=== PATIENT | female | born 1960 | race Caucasian/White ===

== ENCOUNTER 2024-04-08 16:46 | Inpatient (IN) | payer MEDICARE, MEDICAID ==
[2024-04-08 19:49] VITALS: BMI 47.0
[2024-04-08] MEDS ORDERED: traMADol HCl 50 MG TAB PO PRN ×2 (21:52)
[2024-04-08] MEDS ORDERED: Acetaminophen 650 MG Suppository PR PRN (21:52)
[2024-04-08] MEDS ORDERED: Dextrose 50% Abboject 50 ML SYRINGE SLOW IVP PRN (21:52)
[2024-04-08] MEDS ORDERED: Dextrose 5% in Water 1,000 ML IV PRN (21:52)
[2024-04-08] MEDS ORDERED: Glucagon 1 MG/ML KIT IM PRN (21:52)
[2024-04-08] MEDS ORDERED: Vancomycin Dialysis Sliding Scale (Wt > 99) FS SCH (22:30)
[2024-04-08] MEDS: Morphine 4 MG/ML VIAL SLOW IVP PRN (22:48)
[2024-04-08] MEDS: Ondansetron ODT 4 MG TAB PO PRN (22:48)
[2024-04-08] MEDS: Piperacillin/Tazobactam 3.375 GM in Sodium Chloride 0.9% 100 ML IVPB SCH (22:50)
[2024-04-08] MEDS: Insulin Lispro 100 UNIT/ML 10 ML VIAL SC PRN (23:01)
[2024-04-09 05:28] LABS: Anion Gap 19 mmol/L (10-20); BUN (Urea Nitrogen) 50 mg/dL (9.8-20.1); Calc. Creatinine Clearance 22 mL/min (70-130); Calcium 9.2 mg/dL (7.8-10.44); Carbon Dioxide 23 mmol/L (23-31); Chloride 97 mmol/L (98-107); Estimated GFR 9; Glucose 198 mg/dL (80-115); Sodium 135 mmol/L (136-145)
[2024-04-09 05:38] LABS: #Basophils 0.03 10x3/uL (0.0-0.2); %Basophils 0.5 % (0.0-1.0); %Eosinophils 4.4 % (0.0-10.0); %Lymphocytes 27.7 % (21.0-51.0); %Monocytes 13.7 % (0.0-10.0); %Neutrophils 53.2 % (42.0-75.0); Hematocrit 30.4 % (36.0-47.0); Hemoglobin 9.4 g/dL (12.0-16.0); Mean Corpuscular HGB CONC 30.9 g/dL (32.0-36.0); Mean Corpuscular Hemoglobin 29.1 pg (27.0-31.0); Mean Corpuscular Volume 94.1 fL (78.0-98.0); Mean Platelet Volume 10.9 fL (7.4-10.4); Platelet Count 144 10x3/uL (130-400); RBC Distribution Width 16.2 % (11.5-14.5); Red Blood Cell (RBC) Count 3.23 mill/uL (4.20-5.40)
[2024-04-09 07:38] LABS: Vancomycin, Trough 23.8 ug/mL
[2024-04-09] MEDS: Insulin Glargine 30 UNITS/0.3 ML VIAL SC SCH (08:53)
[2024-04-09] MEDS ORDERED: Vancomycin 2 GM in Sodium Chloride 0.9% 500 ML IVPB SCH (09:00)
[2024-04-09 10:44] LABS: HBSAB Concentration 30.24 mIU/mL; HBsAg Index 0.26 S/CO (0-0.99); Hep B Core Total Ab NONREACTIVE (NonReactive); Hep B Core Total Index 0.06 S/CO (0-0.79); Hep B Surf AB REACTIVE (NonReactive); Hep B Surf Ag NONREACTIVE S/CO (NonReactive); Hep C IgG Ab NONREACTIVE S/CO (NonReactive); Hep C Index 0.23 S/CO (0-0.79)
[2024-04-09] MEDS: Acetaminophen/Codeine 30-300mg Tablet PO PRN (13:48)
[2024-04-09] MEDS: busPIRone HCl 10 MG TAB PO SCH (13:49)
[2024-04-09] MEDS: Vancomycin HCl 500 MG in Sodium Chloride 0.9% 100 ML IVPB SCH (21:02)
[2024-04-09] MEDS: rOPINIRole HCl 0.5 MG TAB PO SCH (21:03)
[2024-04-09] MEDS: Famotidine 20 MG TAB PO SCH (21:03)
[2024-04-09] MEDS: Apixaban 2.5 MG TAB PO SCH (21:04)
[2024-04-09] MEDS: Escitalopram Oxalate 20 mg Tablet PO SCH (21:04)
[2024-04-09] MEDS: hydrOXYzine 10 MG TAB PO PRN (21:04)
[2024-04-10] MEDS: Levothyroxine Sodium 75 MCG TAB PO SCH (05:52)
[2024-04-10] MEDS: Ondansetron PF 4 MG/2 ML Vial IVP PRN (05:59)
[2024-04-10] MEDS: Torsemide 100 MG TAB PO SCH (09:56)
[2024-04-10] MEDS: Amlodipine 10 MG TAB PO SCH (09:56)
[2024-04-10] MEDS: Pantoprazole DR 40 MG TAB PO SCH (09:56)
[2024-04-10] MEDS: Oxybutynin ER 5 MG TAB PO SCH (09:56)
[2024-04-10] MEDS: ALPRAZolam 1 MG TAB PO PRN (11:37)
[2024-04-10] MEDS: Morphine 2 MG/ML VIAL SLOW IVP PRN (20:46)
[2024-04-11] MEDS: Acetaminophen 325 MG TAB PO PRN (02:12)
[2024-04-11] MEDS: Insulin Glargine 30 UNITS/0.3 ML VIAL SC SCH (08:20)
[2024-04-11 09:07] LABS: #Basophils 0.06 10x3/uL (0.0-0.2); %Eosinophils 3.6 % (0.0-10.0); %Lymphocytes 25.9 % (21.0-51.0); %Monocytes 12.2 % (0.0-10.0); %Neutrophils 56.8 % (42.0-75.0); Hematocrit 32.3 % (36.0-47.0); Hemoglobin 10.2 g/dL (12.0-16.0); Mean Corpuscular HGB CONC 31.6 g/dL (32.0-36.0); Mean Corpuscular Hemoglobin 29.5 pg (27.0-31.0); Mean Corpuscular Volume 93.4 fL (78.0-98.0); Mean Platelet Volume 11.2 fL (7.4-10.4); Platelet Count 184 10x3/uL (130-400); RBC Distribution Width 15.9 % (11.5-14.5); Red Blood Cell (RBC) Count 3.46 mill/uL (4.20-5.40)
[2024-04-11 09:30] LABS: Anion Gap 23 mmol/L (10-20); BUN (Urea Nitrogen) 54 mg/dL (9.8-20.1); Calc. Creatinine Clearance 21 mL/min (70-130); Calcium 9.2 mg/dL (7.8-10.44); Carbon Dioxide 19 mmol/L (23-31); Chloride 96 mmol/L (98-107); Estimated GFR 8; Glucose 311 mg/dL (80-115); Magnesium 2.4 mg/dL (1.6-2.6); Potassium 5.6 mmol/L (3.5-5.1); Sodium 132 mmol/L (136-145)
[2024-04-12 06:55] LABS: #Basophils 0.04 10x3/uL (0.0-0.2); %Basophils 0.6 % (0.0-1.0); %Eosinophils 3.7 % (0.0-10.0); %Monocytes 11.2 % (0.0-10.0); Hematocrit 29.8 % (36.0-47.0); Hemoglobin 9.2 g/dL (12.0-16.0); Mean Corpuscular HGB CONC 30.9 g/dL (32.0-36.0); Mean Corpuscular Hemoglobin 29.4 pg (27.0-31.0); Mean Corpuscular Volume 95.2 fL (78.0-98.0); Mean Platelet Volume 10.1 fL (7.4-10.4); Platelet Count 179 10x3/uL (130-400); RBC Distribution Width 15.7 % (11.5-14.5); Red Blood Cell (RBC) Count 3.13 mill/uL (4.20-5.40)
[2024-04-12 07:07] LABS: Anion Gap 20 mmol/L (10-20); BUN (Urea Nitrogen) 68 mg/dL (9.8-20.1); Calc. Creatinine Clearance 18 mL/min (70-130); Carbon Dioxide 21 mmol/L (23-31); Chloride 98 mmol/L (98-107); Estimated GFR 7; Glucose 254 mg/dL (80-115); Magnesium 2.3 mg/dL (1.6-2.6); Potassium 3.8 mmol/L (3.5-5.1); Sodium 135 mmol/L (136-145)
[2024-04-12 07:50] VITALS: BP 147/77; TEMP 98.5
[2024-04-12] MEDS: Insulin NPH Human Isophane 100 UNITS/ML (10 ML VIAL) SC SCH (08:05)
[2024-04-12 08:57] LABS: Vancomycin, Trough 14.8 ug/mL
[2024-04-12] MEDS ORDERED: Insulin Glargine 30 UNITS/0.3 ML VIAL SC SCH (09:00)
[2024-04-12] MEDS ORDERED: Heparin 10,000 UNITS/ 10 ML VIAL ONE (09:02)
[2024-04-12] MEDS: Loperamide HCl 2 MG CAP PO PRN (12:13)
[2024-04-12] MEDS ORDERED: VANCOMYCIN 1.25 GM/250 ML BAG 1.25 GM in Premix 1 BAG IVPB SCH (17:00)
== END 2024-04-12 13:36 | disposition home or self-care (01) | DRG 638 ==
LOC: T4-B 18:51
PROVIDERS: ADMIT Family Medicine; ATTEND Family Medicine
PROC: 5A1D70Z Performance of Urinary Filtration, Intermittent, Less than 6 Hours Per Day (ICD-10-PCS; principal; 2024-04-12)
DX: E11.628 Type 2 diabetes mellitus with other skin complications (principal); I12.0 Hypertensive chronic kidney disease with stage 5 chronic kidney disease or end stage renal disease; L03.115 Cellulitis of right lower limb; E11.621 Type 2 diabetes mellitus with foot ulcer; E11.610 Type 2 diabetes mellitus with diabetic neuropathic arthropathy; L97.519 Non-pressure chronic ulcer of other part of right foot with unspecified severity; N18.6 End stage renal disease; Z99.2 Dependence on renal dialysis; E11.22 Type 2 diabetes mellitus with diabetic chronic kidney disease; F41.9 Anxiety disorder, unspecified; Z88.8 Allergy status to other drugs, medicaments and biological substances; E03.9 Hypothyroidism, unspecified; Z90.49 Acquired absence of other specified parts of digestive tract; Z98.890 Other specified postprocedural states; K21.9 Gastro-esophageal reflux disease without esophagitis; Z79.4 Long term (current) use of insulin; Z79.899 Other long term (current) drug therapy; L08.9 Local infection of the skin and subcutaneous tissue, unspecified; Z79.01 Long term (current) use of anticoagulants; E87.5 Hyperkalemia
CPT/HCPCS: 36415; 36416; 80048; 80053; 80202; 81001; 82805; 83036; 83735; 84443; 85025; 86704; 86706; 86803; 87040; 87340; 93005; 93010; 96365; 96367; 97139; J1644; J1815; J2272; J2405; J2543; J3370; Q0162